=== PATIENT | female | born 1965 | race Caucasian/White ===

== ENCOUNTER 2016-12-04 17:54 | Emergency (ER) | payer MEDICAID, OTHER ==
[~2016-12-04] VITALS: Ht 157.5 cm; Wt 69.9 kg
[2016-12-04 17:55] VITALS: Ht 157.5 cm; Wt 69.9 kg
[2016-12-04] MEDS ORDERED: D-ME473S18 PO (18:44)
[2016-12-04] MEDS ORDERED: ALBU18HF INHALATION (18:44)
[2016-12-04] MEDS ORDERED: AZIT250T94 PO (18:44)
--- NOTE | 2016-12-04 18:51 | ERD ---
ER Documentation Chief Complaint Date/Time DATE: 12/04/16 TIME: 18:46 Chief Complaint cough since wednesday HPI This patient is a 51-year-old female with past medical history of hypertension and hypothyroidism currently taking medications for both presenting to the emergency department for cough ongoing for the past 5 days. The patient states cough is productive in nature. Additionally she reports headache, mild shortness of breath, and sick contacts and some chest wall pain. The patient has been taking ncew-hol-kcaxocc medications with no relief of symptoms. The patient denies fevers, chills, nausea, vomiting, diarrhea, or other symptoms at this time. ROS All systems reviewed and are negative except as per history of present illness. Medications Home Meds Active Scripts Dextromethorphan Hb-Promethazine Hcl (Promethazine DM Syrup) 473 Ml Syrup, 5 ML PO Q6H Y for COUGH, #4 OZ Prov:JS WHITTEN PA-C 12/04/16 Albuterol Sulfate* (Ventolin HFA*) 18 Gm Hfa.aer.ad, 2 PUFF INHALATION Q4H, #1 INHALER Prov:JS WHITTEN PA-C 12/04/16 Azithromycin* (Zithromax*) 250 Mg Tablet, 250 MG PO .ZPACK DIRECTED, #6 TAB TAKE 500 MG (2 TABS) THE FIRST DAY THEN 250 MG (1 TAB) DAYS 2-5 Prov:JS WHITTEN PA-C 12/04/16 Allergies Allergies: Coded Allergies: No Known Allergy (Unverified , 12/04/16) PMhx/Soc History of Surgery: No Anesthesia Reaction: No Hx Neurological Disorder: No Hx Respiratory Disorders: No Hx Cardiac Disorders: Yes (HTN) Hx Psychiatric Problems: No Hx Miscellaneous Medical Probl: No Hx Alcohol Use: No Hx Substance Use: No Hx Tobacco Use: No Smoking Status: Unknown if ever smoked FmHx Noncontributory for chief complaint Physical Exam Vitals Vital Signs Date Time Temp Pulse Resp B/P Pulse Ox O2 Delivery O2 Flow Rate FiO2 12/04/16 17:55 98.1 90 20 150/89 99 Physical Exam Const: The patient is resting comfortably in no acute distress. Head: Atraumatic Eyes: Normal Conjunctiva ENT: Normal External Ears, Nose and Mouth. Neck: Full range of motion..~ No meningismus. Resp: Clear to auscultation bilaterally Cardio: Regular rate and rhythm, no murmurs Abd: Soft, non tender, non distended. Normal bowel sounds Skin: No petechiae or rashes Back: No midline or flank tenderness Ext: No cyanosis, or edema Neur: Awake and alert Psych: Normal Mood and Affect Procedures/MDM 51-year-old female presents secondary to complaints of chest wall pain, shortness of breath, cough, and headache ongoing for the past 5 days. On physical examination the patient's pressure slightly elevated 150/89 which I believe is due to acute sickness. EKG: Interpreted by ED physician Rate/Rhythm: Normal sinus rhythm with a rate of 72 bpm. QRS, ST, T-waves: No changes consistent w/ acute ischemia Impression: No evidence of ischemia or arrhythmia Patient's blood pressure was elevated (>120/80) but appears stable without evidence of hypertension emergency or urgency. The patient was counseled about the risks of hypertension and urged to pursue outpatient monitoring and therapy within a week with their primary care physician. Examination of the lungs reveals no wheezes, rales, or rhonchi. The patient's symptoms are most likely viral in etiology however I will still treat her with a Z-Baldemar in case bacterial etiology is present. I will also give the patient prescriptions for Ventolin inhaler and Promethazine DM liquid to be taken only as needed for cough. The patient understands discharge plan and diagnosis. All questions and concerns were addressed. The patient was advised to follow-up with her primary care physician as soon as possible. The patient is to return to the emergency department immediately with any new or worsening symptoms and she demonstrates good understanding of this information. I doubt bronchitis, pneumonia, pneumothorax, pulmonary embolism, asthma exacerbation requiring further workup or admission, or other emergent conditions at this time. Departure Diagnosis: Primary Impression: Cough Additional Impressions: Upper respiratory infection URI type: unspecified URI Qualified Code: J06.9 - Upper respiratory tract infection, unspecified type Shortness of breath Condition: Fair Patient Instructions: Coping with Shortness of Breath: Controlling Stress, Preventing Common Respiratory Infections, Cough, Chronic, Uncertain Cause, ( Adult) [facility] Usted se navarrete hecho un examen mdico de control que le indica que no est en tanmay condicin que requiera tratamiento urgente en el Departamento de Emergencia. Un estudio ms profundo y el tratamiento de stanley condicin pueden esperar sin ningn riesgo hasta que usted sea atendida/o en el consultorio de stanley mdico o tanmay cl lizbet. Es responsabilidad suya arreglar tanmay tammy para el seguimiento del colette. MANEJO DE CONDICIONES NO URGENTES EN EL FUTURO 1) Si usted tiene un mdico de atencin primaria: Usted debera llamar a stanley mdico de atencin primaria antes de venir al departamento de emergencia. Despus de las horas de consultorio, stanley doctor o stanley asociado/a est disponible por telfono. El mdico o enfermero de sam en el servicio telefnico puede asesorarle por soledad medio para atender el problema, o colette contrario se puede programar tanmay tammy. 2) Si usted no tiene un mdico de atencin primaria: Llame al mdico o clnica de referencia que aparece abajo rani las horas de consultorio para hacer tanmay tammy para que le vean. CLINICAS: [facility] [phone] [facility] [facility] [phone] [facility] [facility] [phone] [address] [facility] [phone] [facility] [place] [id number] [phone] [facility]. [phone] [address] Additional Instructions: No mas mejor en 2-3 ferraro, regresar. Mas peor en 24 horas, regresear rapidamente. Ir a doctor primario in 5-7 ferraro. Usar instrucciones cuando bita medicamento. JS WHITTEN PA-C Dec 04, 2016 18:51
== END 2016-12-04 18:55 | disposition home or self-care (01) ==
LOC: FTE 17:54
DX: R05 Cough (principal); J06.9 Acute upper respiratory infection, unspecified; I10 Essential (primary) hypertension; E03.9 Hypothyroidism, unspecified
CPT/HCPCS: 93005

== ENCOUNTER 2016-12-31 10:37 | Emergency (ER) | payer MEDICAID ==
[~2016-12-31] VITALS: Ht 149.9 cm; Wt 79.0 kg
[~2016-12-31 10:37] MED LIST: ALBU18HF INHALATION; AZIT250T94 PO; D-ME473S18 PO
[2016-12-31 10:48] VITALS: Ht 149.9 cm; Wt 79.0 kg
--- NOTE | 2016-12-31 12:24 | ERD ---
ER Documentation Chief Complaint Date/Time DATE: 12/31/16 TIME: 12:22 Chief Complaint CAME IN VIA INTAKE DUE TO LEFT SHOULDER PAIN WITH STATED INFLAMMATION HPI 51-year-old female with history of hypertension comes in the emergency department with left-sided shoulder pain that started about 12 days ago. She tried taking ibuprofen, with only mild relief. Patient reports pain in the left shoulder, she states it is "inside" and reports that is worse with any movement. She denies any chest pain, shortness breath or palpitations, paresthesias. Patient states that she is actually right-hand dominant, denies any trauma. ROS All systems reviewed and are negative except as per history of present illness. Medications Home Meds Active Scripts Tramadol Hcl* (Ultram*) 50 Mg Tablet, 50 MG PO Q6H Y for PAIN, #15 TAB Prov:BILLY TILLEY PA-C 12/31/16 Dextromethorphan Hb-Promethazine Hcl (Promethazine DM Syrup) 473 Ml Syrup, 5 ML PO Q6H Y for COUGH, #4 OZ Prov:JS WHITTEN PA-C 12/04/16 Albuterol Sulfate* (Ventolin HFA*) 18 Gm Hfa.aer.ad, 2 PUFF INHALATION Q4H, #1 INHALER Prov:JS WHITTEN PA-C 12/04/16 Azithromycin* (Zithromax*) 250 Mg Tablet, 250 MG PO .ZPACK DIRECTED, #6 TAB TAKE 500 MG (2 TABS) THE FIRST DAY THEN 250 MG (1 TAB) DAYS 2-5 Prov:JS WHITTEN PA-C 12/04/16 Allergies Allergies: Coded Allergies: No Known Allergy (Unverified , 12/04/16) PMhx/Soc History of Surgery: No Anesthesia Reaction: No Hx Neurological Disorder: No Hx Respiratory Disorders: No Hx Cardiac Disorders: Yes (HTN) Hx Psychiatric Problems: No Hx Miscellaneous Medical Probl: No Hx Alcohol Use: No Hx Substance Use: No Hx Tobacco Use: No Smoking Status: Never smoker Physical Exam Vitals Vital Signs Date Time Temp Pulse Resp B/P Pulse Ox O2 Delivery O2 Flow Rate FiO2 12/31/16 10:48 98.1 88 18 147/85 98 Physical Exam General: Well-developed, well-nourished. The patient appears in no acute distress. HEENT: Head is normocephalic, atraumatic. No scleral icterus. Neck: Supple. Nontender. Lungs: Clear to auscultation. Normal air movement. Heart: Regular rate and rhythm. S1 and S2 are normal. No murmurs, gallops, or rubs. Abdomen: Nondistended. Upper Extremity - bilateral: Skin: No laceration, or evidence of external trauma Compartments: Soft Motor: Full active range of motion shoulder/elbow/wrist/ hand, reproducible tenderness with shoulder internal rotation. Sensation: Intact shoulder/pinky/middle finger/thumb web space Bones: Nontender humerus/elbow/forearm/wrist/hand Snuffbox: Nontender Joints: No effusion Pulses/Perfusion: 2+ radial, Capillary refill < 2 seconds Neurologic: Alert and oriented 3. No focal deficits. Normal speech and gait. Skin: Normal turgor. No rash or lesions. Results 24 hrs Current Medications Medications (Trade) Dose Ordered Sig/Isabel Route PRN Reason Start Time Stop Time Status Last Admin Dose Admin Tramadol HCl (Ultram) 50 mg ONCE ONCE PO 12/31/16 12:30 12/31/16 12:31 DC 12/31/16 12:20 PROCEDURE: Left Shoulder Series CLINICAL INDICATION: Left shoulder pain no TECHNIQUE: 3 views of the left shoulder are available for review. COMPARISON: None available FINDINGS: There is normal mineralization and alignment of the bones of the left shoulder. No fracture or dislocation is identified. There is a small calcification adjacent to the humeral head consistent with calcific tendinopathy. The glenohumeral joint is intact. The acromioclavicular joint is grossly unremarkable. The visualized portions of the left chest wall are within normal limits. The soft tissues are unremarkable. IMPRESSION: 1. Calcific tendinopathy of the left shoulder. 2. Otherwise unremarkable left shoulder series. RPTAT: KK .Paco Carmona MD, Date Time Electronically viewed and signed by .Paco Carmona MD, MD on 2016 12:56 Procedures/MDM ED course: Patient was offered pain medication, she was given tramadol by mouth. MDM: 51-year-old female presents for left shoulder pain, differentials include bursitis, AC joint sprain, rotator cuff tendinitis, osteoarthritis, fracture, dislocation, subluxation, septic arthritis, and among others. X-ray shows calcific tendonitis, no limb threatening process noted. Departure Diagnosis: Primary Impression: Calcific tendonitis Condition: Good BILLY TILLEY PA-C Dec 31, 2016 12:24
[2016-12-31] MEDS ORDERED: traMADol 50 MG TAB PO ONE (12:30)
--- NOTE | 2016-12-31 12:57 | RADRPT ---
PROCEDURE: Left Shoulder Series CLINICAL INDICATION: Left shoulder pain no TECHNIQUE: 3 views of the left shoulder are available for review. COMPARISON: None available FINDINGS: There is normal mineralization and alignment of the bones of the left shoulder. No fracture or disl ocation is identified. There is a small calcification adjacent to the humeral head consistent with calcific tendinopathy. The glenohumeral joint is intact. The acromioclavicular joint is grossly un remarkable. The visualized portions of the left chest wall are within normal limits. The soft tissu es are unremarkable. IMPRESSION: 1. Calcific tendinopathy of the left shoulder. 2. Otherwise unremarkable left shoulder series. RPTAT: KK .Paco Carmona MD, Date Time Electronically viewed and signed by .Paco Carmona MD, on 12/31/2016 12:56 .B/
[2016-12-31] MEDS ORDERED: TRAM-40 PO (13:04)
== END 2016-12-31 13:10 | disposition home or self-care (01) ==
LOC: FTE 10:37
DX: M75.32 Calcific tendinitis of left shoulder (principal); I10 Essential (primary) hypertension
CPT/HCPCS: 73030; 93005; Z7502; Z7610

== ENCOUNTER 2018-07-19 00:23 | Emergency (ER) | END 2018-07-19 03:24 | disposition home or self-care (01) ==